=== PATIENT | male | born 1955 | race Asian ===

== ENCOUNTER 2019-02-04 09:37 | Emergency (ER) | payer MEDICARE, BC, OTHER ==
[2019-02-04 09:49] VITALS: BP 195/94
--- NOTE | 2019-02-04 10:47 | ED Physician Documentation ---
History of Present Illness - Stated complaint Stated Complaint: ANXIETY - Chief complaint Chief Complaint: MHE - History obtained from History obtained from: Patient - History of Present Illness Timing: How many weeks ago (1) - Additonal information Additional information: 63-year-old male who was eldest of his siblings has an 87-year-old mother in [place] who is in failing health. He is feeling anxiety over the fact that in his culture he is the one who supposed to take care of his parents and his mother will be staying in [place] and the situation he finds difficult. The patient has had difficulty sleeping and general issues regarding his inability to care for his aging mother. Review of Systems Constitutional: denies: Fever Eyes: denies: Decreased vision Ears: denies: Ear pain Nose: denies: Congestion Throat: denies: Sore throat Cardiac: denies: Chest pain / pressure Respiratory: denies: Dyspnea, Cough GI: reports: Constipation. denies: Abdominal Pain, Nausea, Vomiting : denies: Dysuria PD PAST MEDICAL HISTORY - Past Medical History Cardiovascular: Hypertension GI: Other Musculoskeletal: Gout - Past Surgical History Past Surgical History: Yes General: Colonoscopy, Other Ortho: Other - Present Medications Home Medications: Ambulatory Orders Medication Instructions Recorded Confirmed Carvedilol [Coreg] 40 mg PO DAILY 08/13/15 08/13/15 Colchicine 0.6 mg PO DAILY 08/13/15 08/13/15 HYDROcod/ACETAM 5/325 [[place] 5/325] 1 ea PO Q6H PRN #15 tablet 08/13/15 Indomethacin [Indocin] 25 mg PO BIDWM PRN #30 cap 08/13/15 Lisinopril 40 mg PO DAILY 08/13/15 08/13/15 Lorazepam [Ativan] 1 mg PO Q8HR #20 tablet 02/04/19 - Allergies Allergies/Adverse Reactions: Allergies Allergy/AdvReac Type Severity Reaction Status Date / Time amlodipine Allergy Edema Verified 02/04/19 09:45 venom-honey bee Allergy Anaphylaxis Verified 02/04/19 09:45 [bee venom (honey bee)] - Social History Does the pt smoke?: No Smoking Status: Never smoker - Immunizations Immunizations are current?: No Immunizations: TDAP >10years/unknown PD ED PE NORMAL - Vitals Vital signs reviewed: Yes (hyhpertensive) - General General: Alert and oriented X 3, No acute distress, Well developed/nourished - HEENT HEENT: Atraumatic, PERRL, EOMI - Respiratory Respiratory: No respiratory distress - Derm Derm: Normal color, Warm and dry, No rash - Extremities Extremities: No deformity, No edema - Neuro Neuro: Alert and oriented X 3, [place] 2-12 intact, No motor deficit, No sensory deficit, Normal speech Eye Opening: Spontaneous Motor: Obeys Commands Verbal: Oriented GCS Score: 15 - Psych Psych: Normal mood, Normal affect Results - Vitals Vitals: Vital Signs - 24 hr 02/04/19 09:40 Temperature 36 C L Heart Rate 60 Respiratory 18 Rate Blood Pressure 195/94 H O2 Saturation 98 Oxygen O2 Source Room air PD MEDICAL DECISION MAKING - ED course Complexity details: considered differential, d/w patient ED course: aobut 63-year-old male with acute situational anxiety and ruminations is not sleeping well. I discussed with him temporary use of anxiolytic and he will follow-up with his primary care doctor about counselling . Departure - Departure Disposition: 01 Home, Self Care Clinical Impression: Anxiety Condition: Stable Instructions: ED Stress React Follow-Up: Kennedy Shah MD [Physician No Access] - Prescriptions: Lorazepam [Ativan] 1 mg PO Q8HR #20 tablet
== END 2019-02-04 10:54 | disposition home or self-care (01) ==
LOC: ED 09:37
DX: F41.9 Anxiety disorder, unspecified (principal)
CPT/HCPCS: 99283

== ENCOUNTER 2020-01-30 18:58 | Emergency (ER) | payer MEDICARE, BC, OTHER ==
--- NOTE | 2020-01-30 19:52 | ED Physician Documentation ---
History of Present Illness - Stated complaint Stated Complaint: GENERAL BODY ACHES/RUN DOWN - Chief complaint Chief Complaint: General - History obtained from History obtained from: Patient - History of Present Illness Timing: Today Pain level max: 0 Pain level now: 0 - Additonal information Additional information: 64-year-old male states that he has just felt tired for the past several days. Nothing makes it better or worse. He states he took allergy medication but this did not really help. States he has a mild sore throat. Has a history of anxiety. No significant cough. No fevers. No vomiting. No diarrhea. Review of Systems Constitutional: denies: Fever, Chills Respiratory: denies: Cough, Hemoptysis, Wheezing GI: denies: Abdominal Pain, Nausea, Vomiting, Diarrhea : denies: Dysuria Musculoskeletal: denies: Neck pain, Back pain Neurologic: denies: Headache PD PAST MEDICAL HISTORY - Past Medical History Past Medical History: Yes Cardiovascular: Hypertension GI: Other Musculoskeletal: Gout - Past Surgical History Past Surgical History: Yes General: Colonoscopy, Other Ortho: Other - Present Medications Home Medications: Ambulatory Orders Medication Instructions Recorded Confirmed Carvedilol [Coreg] 40 mg PO DAILY 08/13/15 08/13/15 Colchicine 0.6 mg PO DAILY 08/13/15 08/13/15 HYDROcod/ACETAM 5/325 [[place] 5/325] 1 ea PO Q6H PRN #15 tablet 08/13/15 Indomethacin [Indocin] 25 mg PO BIDWM PRN #30 cap 08/13/15 lisinopriL [Lisinopril] 40 mg PO DAILY 08/13/15 08/13/15 Lorazepam [Ativan] 1 mg PO Q8HR #20 tablet 02/04/19 - Allergies Allergies/Adverse Reactions: Allergies Allergy/AdvReac Type Severity Reaction Status Date / Time amlodipine Allergy Edema Verified 02/04/19 09:45 venom-honey bee Allergy Anaphylaxis Verified 02/04/19 09:45 [bee venom (honey bee)] - Social History Does the pt smoke?: No Smoking Status: Never smoker Does the pt drink ETOH?: No Does the pt have substance abuse?: No - Immunizations Immunizations are current?: No Immunizations: TDAP >10years/unknown - POLST Patient has POLST: No PD ED PE NORMAL - Vitals Vital signs reviewed: Yes - General General: Alert and oriented X 3, No acute distress - HEENT HEENT: Ears normal, Moist mucous membranes, Pharynx benign - Neck Neck: Supple, no meningeal sign - Cardiac Cardiac: RRR, Strong equal pulses - Respiratory Respiratory: No respiratory distress, Clear bilaterally - Derm Derm: Warm and dry - Neuro Neuro: Alert and oriented X 3 - Psych Psych: Normal mood, Normal affect Results - Vitals Vitals: Vital Signs - 24 hr 01/30/20 01/30/20 19:06 20:17 Temperature 36.4 C L Heart Rate 65 65 Respiratory 16 14 Rate Blood Pressure 167/80 H 160/78 H O2 Saturation 96 99 Oxygen O2 Source Room air PD MEDICAL DECISION MAKING - ED course Complexity details: considered differential, d/w patient ED course: Patient is well-appearing, nontoxic. Afebrile. No hypoxia. No respiratory distress. Appears to have a viral syndrome. We will continue supportive care and have him follow-up with his doctor for further care. Patient counseled regarding signs and symptoms for which I believe and urgent re-evaluation would be necessary. Patient with good understanding of and agreement to plan and is comfortable going home at this time This document was made in part using voice recognition software. While efforts are made to proofread this document, sound alike and grammatical errors may occur. Departure - Departure Disposition: 01 Home, Self Care Clinical Impression: Viral syndrome Condition: Good Instructions: ED Viral Syndrome Follow-Up: Jeimy Martinez PA-C [Primary Care Provider] - (in 1 week if not better ) Comments: Return if you worsen. Follow-up with your doctor for further care. The coronavirus test should be back in the next 24 to 48 hours. You should stay away from others until it is resulted negative. Discharge Date/Time: 01/30/20 20:18
[2020-01-30 20:19] VITALS: BP 160/78
== END 2020-01-30 20:18 | disposition home or self-care (01) ==
LOC: ED 18:58
DX: B34.9 Viral infection, unspecified (principal); I10 Essential (primary) hypertension
CPT/HCPCS: 81599; 99283; 99284

== ENCOUNTER 2020-05-10 13:45 | Emergency (ER) | payer BC, MEDICARE, OTHER ==
[2020-05-10] MEDS ORDERED: lisinopriL 5 MG TABLET PO STA (14:19)
--- NOTE | 2020-05-10 14:23 | ED Physician Documentation ---
History of Present Illness - Stated complaint Stated Complaint: HBP/DIZZY - Chief complaint Chief Complaint: Cardiac - History obtained from History obtained from: Patient - Additonal information Additional information: 65-year-old gentleman with recalcitrant hypertension, current regimen is hydrochlorothiazide, 12.5 mg a day, Coreg, 50 mg in the morning and 25 mg at night, lisinopril, 40 mg a day although he is supposed to be taking 80 mg, and the recent start of verapamil at 40 mg a day. He noticed his blood pressure was high today. Yesterday was pretty good at 138/80. He denies chest pain or trouble breathing. He feels a little dizzy with some blurry vision. No trouble urinating. No pedal edema. Review of Systems Constitutional: denies: Fever, Chills, Myalgias, Fatigue Ears: denies: Loss of hearing, Drainage/discharge Cardiac: denies: Chest pain / pressure, Palpitations, Pedal edema, Calf pain Respiratory: denies: Dyspnea PD PAST MEDICAL HISTORY - Past Medical History Cardiovascular: Hypertension GI: Other Musculoskeletal: Gout - Past Surgical History Past Surgical History: Yes General: Colonoscopy, Other Ortho: Other - Present Medications Home Medications: Ambulatory Orders Medication Instructions Recorded Confirmed Carvedilol [Coreg] 40 mg PO DAILY 08/13/15 08/13/15 Colchicine 0.6 mg PO DAILY 08/13/15 08/13/15 HYDROcod/ACETAM 5/325 [[place] 5/325] 1 ea PO Q6H PRN #15 tablet 08/13/15 Indomethacin [Indocin] 25 mg PO BIDWM PRN #30 cap 08/13/15 lisinopriL [Lisinopril] 40 mg PO DAILY 08/13/15 08/13/15 Lorazepam [Ativan] 1 mg PO Q8HR #20 tablet 02/04/19 - Allergies Allergies/Adverse Reactions: Allergies Allergy/AdvReac Type Severity Reaction Status Date / Time amlodipine Allergy Edema Verified 05/10/20 13:56 venom-honey bee Allergy Anaphylaxis Verified 05/10/20 13:56 [bee venom (honey bee)] - Social History Does the pt smoke?: No Smoking Status: Never smoker Does the pt drink ETOH?: No Does the pt have substance abuse?: No - Immunizations Immunizations are current?: No Immunizations: TDAP >10years/unknown - POLST Patient has POLST: No PD ED PE NORMAL - Vitals Vital signs reviewed: Yes - General General: Alert and oriented X 3, No acute distress - HEENT HEENT: PERRL - Cardiac Cardiac: RRR, No murmur - Respiratory Respiratory: No respiratory distress, Clear bilaterally - Abdomen Abdomen: Non tender - Extremities Extremities: No edema, No calf tenderness / cord - Neuro Neuro: Alert and oriented X 3, Normal speech Results - Vitals Vitals: Vital Signs - 24 hr 05/10/20 13:56 Temperature 36.7 C Heart Rate 58 L Respiratory 19 Rate Blood Pressure 201/88 H O2 Saturation 100 Oxygen O2 Source Room air - Labs Labs: Laboratory Tests 05/10/20 14:29 Sodium 136 Potassium 3.4 L Chloride 99 L Carbon Dioxide 27 Anion Gap 10.0 BUN 16 Creatinine 0.7 Estimated GFR (MDRD) 112 Glucose 140 H Calcium 8.4 L Magnesium 2.5 PD MEDICAL DECISION MAKING - ED course ED course: 65-year-old gentleman with established hypertension out of control. No evidence of endorgan damage. Departure - Departure Disposition: 01 Home, Self Care Clinical Impression: Essential hypertension Condition: Good Record reviewed to determine appropriate education?: Yes Instructions: ED HTN Established Comments: Take your medications as prescribed, follow-up with your doctor in about a week for recheck. Return if worse.
[2020-05-10 14:46] LABS: CALCIUM 8.4 mg/dL (8.5-10.3); CREATININE 0.7 mg/dL (0.6-1.2); MAGNESIUM 2.5 mg/dL (1.7-2.8)
[2020-05-10 15:35] VITALS: BP 173/88
== END 2020-05-10 15:35 | disposition home or self-care (01) ==
LOC: ED 13:45
DX: I10 Essential (primary) hypertension (principal)
CPT/HCPCS: 36415; 80048; 83735; 99283; 99284; A9270

== ENCOUNTER 2020-06-08 13:01 | Emergency (ER) | payer BC, MEDICARE, OTHER ==
[2020-06-08] MEDS ORDERED: diphenhydrAMINE 25 MG CAPSULE PO STA (13:13)
[2020-06-08] MEDS ORDERED: predniSONE 20 MG TABLET PO STA (13:13)
--- NOTE | 2020-06-08 14:03 | ED Physician Documentation ---
History of Present Illness - Stated complaint Stated Complaint: BEE STING/ALLERGIC REACTION - Chief complaint Chief Complaint: Allergic Rx - History obtained from History obtained from: Patient - History of Present Illness Timing: Today Pain level max: 0 Pain level now: 0 - Additonal information Additional information: 65-year-old male presents to the emergency department stating that he was stung by a bee on the left side of the neck approximately 30 to 40 minutes prior to arrival. Has had allergic reactions in the past. He does not have any difficulty speaking, swallowing or breathing at this time. Has not taken anything. Nothing makes it better or worse. Review of Systems Ten Systems: 10 systems reviewed and negative Constitutional: denies: Fever, Chills Nose: denies: Rhinorrhea / runny nose, Congestion Cardiac: denies: Chest pain / pressure, Palpitations Respiratory: denies: Dyspnea, Cough GI: denies: Nausea, Vomiting, Diarrhea Skin: denies: Rash Musculoskeletal: denies: Neck pain, Back pain Neurologic: denies: Headache PD PAST MEDICAL HISTORY - Past Medical History Cardiovascular: Hypertension Respiratory: None Neuro: None Endocrine/Autoimmune: None GI: Other : None HEENT: None Psych: None Musculoskeletal: Gout Derm: None - Past Surgical History Past Surgical History: Yes General: Colonoscopy, Other Ortho: Other - Present Medications Home Medications: Ambulatory Orders Medication Instructions Recorded Confirmed Carvedilol [Coreg] 40 mg PO DAILY 08/13/15 08/13/15 Colchicine 0.6 mg PO DAILY 08/13/15 08/13/15 HYDROcod/ACETAM 5/325 [[place] 5/325] 1 ea PO Q6H PRN #15 tablet 08/13/15 Indomethacin [Indocin] 25 mg PO BIDWM PRN #30 cap 08/13/15 lisinopriL [Lisinopril] 40 mg PO DAILY 08/13/15 08/13/15 Lorazepam [Ativan] 1 mg PO Q8HR #20 tablet 02/04/19 EPINEPHrine [Epinephrine] 0.3 mg IJ ONCE PRN #1 auto.injct 06/08/20 predniSONE [Prednisone] 40 mg PO DAILY #10 tablet 06/08/20 - Allergies Allergies/Adverse Reactions: Allergies Allergy/AdvReac Type Severity Reaction Status Date / Time amlodipine Allergy Edema Verified 06/08/20 13:09 venom-honey bee Allergy Anaphylaxis Verified 06/08/20 13:09 [bee venom (honey bee)] - Social History Does the pt smoke?: No Smoking Status: Never smoker Does the pt drink ETOH?: No Does the pt have substance abuse?: No - Immunizations Immunizations are current?: No Immunizations: TDAP >10years/unknown - POLST Patient has POLST: No PD ED PE NORMAL - Vitals Vital signs reviewed: Yes - General General: Alert and oriented X 3, No acute distress, Well developed/nourished - HEENT HEENT: PERRL, Moist mucous membranes, Pharynx benign, Other (No oropharyngeal erythema, swelling. No stridor. Normal phonation.) - Neck Neck: Supple, no meningeal sign - Cardiac Cardiac: RRR, Strong equal pulses - Respiratory Respiratory: No respiratory distress, Clear bilaterally - Abdomen Abdomen: Soft, Non tender, Non distended - Derm Derm: Warm and dry, No rash - Extremities Extremities: No edema - Neuro Neuro: Alert and oriented X 3 - Psych Psych: Normal mood, Normal affect Results - Vitals Vitals: Vital Signs - 24 hr 06/08/20 06/08/20 06/08/20 13:09 13:12 14:16 Temperature 36.8 C 36.8 C Heart Rate 70 72 75 Respiratory 16 20 16 Rate Blood Pressure 168/90 H 155/85 H 148/68 H O2 Saturation 95 96 98 Oxygen O2 Source Room air PD MEDICAL DECISION MAKING - ED course Complexity details: considered differential, d/w patient ED course: Patient with a bee sting today. Given Benadryl and prednisone. No indications for epi. Monitored for approximately 1 hour after medication with no changes in his symptoms. Feels better. Will prescribe an epinephrine pen for home and have him follow-up with his doctor for further care. Patient counseled regarding signs and symptoms for which I believe and urgent re-evaluation would be necessary. Patient with good understanding of and agreement to plan and is comfortable going home at this time This document was made in part using voice recognition software. While efforts are made to proofread this document, sound alike and grammatical errors may occur. Departure - Departure Disposition: 01 Home, Self Care Clinical Impression: Bee sting Qualifiers: Encounter type: initial encounter Injury intent: assault Qualified Code(s): T63 .443A - Toxic effect of venom of bees, assault, initial encounter Condition: Good Instructions: ED Bite Insect Follow-Up: Ramila Pizarro PA [Primary Care Provider] - As Needed Prescriptions: EPINEPHrine [Epinephrine] 0.3 mg IJ ONCE PRN #1 auto.injct PRN Reason: Anaphylaxis predniSONE [Prednisone] 40 mg PO DAILY #10 tablet Comments: Return if you worsen. Stay on the steroids for the next several days. If you need to use the epinephrine pen for difficulty breathing, you need to be reevaluated right away. Discharge Date/Time: 06/08/20 14:17
[2020-06-08 14:17] VITALS: BP 148/68
== END 2020-06-08 14:17 | disposition home or self-care (01) ==
LOC: ED 13:01
DX: T63.441A Toxic effect of venom of bees, accidental (unintentional), initial encounter (principal); Y93.53 Activity, golf; Y92.39 Other specified sports and athletic area as the place of occurrence of the external cause; Z91.030 Bee allergy status; I10 Essential (primary) hypertension
CPT/HCPCS: 99282; 99284; A9270; J7512

== ENCOUNTER 2020-09-30 08:00 | Outpatient (CLI) | payer MEDICARE, OTHER ==
[2020-09-30 18:51] LABS: BASOPHILS # (AUTO) 0.1 10^3/uL (0.0-0.1); BASOPHILS % (AUTO) 0.8 %; EOSINOPHILS # (AUTO) 0.2 10^3/uL (0.0-0.7); EOSINOPHILS % (AUTO) 3.2 %; LYMPHOCYTES # (AUTO) 1.7 10^3/uL (1.5-3.5); LYMPHOCYTES % (AUTO) 28.2 %; MEAN CORPUSCULAR HEMOGLOBIN 28.8 pg (27.0-31.0); MEAN CORPUSCULAR HGB CONC 32.9 g/dL (32.0-36.0); MEAN CORPUSCULAR VOLUME 87.7 fL (80.0-94.0); MEAN PLATELET VOLUME 10.5 fL (7.4-11.4); MONOCYTES # (AUTO) 0.4 10^3/uL (0.0-1.0); NEUTROPHILS # (AUTO) 3.7 10^3/uL (1.5-6.6); NEUTROPHILS % (AUTO) 60.3 %; PLT - PLATELET COUNT 248 10^3/uL (130-450); RED CELL DISTRIBUTION WIDTH 12.5 % (12.0-15.0); WHITE BLOOD COUNT 6.2 x10^3/uL (4.8-10.8)
[2020-09-30 19:07] LABS: CRP - C-REACTIVE PROTEIN 1.1 mg/dL (0-1.0); URIC ACID 6.9 mg/dL (2.6-7.2)
[2020-09-30 20:09] LABS: RHEUMATOID FACTOR NEGATIVE (Negative)
[2020-10-02 14:07] LABS: DNA (DS) ANTIBODY <1 IU/mL
[2020-10-02 20:17] LABS: CYCLIC CITRULL PEPTIDE CCP IGG <16 UNITS
== END 2020-09-30 08:01 | disposition home or self-care (01) ==
LOC: LAB.N 08:00
PROVIDERS: ATTEND Family Medicine
DX: M19.90 Unspecified osteoarthritis, unspecified site (principal); I10 Essential (primary) hypertension
CPT/HCPCS: 36415; 84550; 85025; 85651; 86038; 86140; 86200; 86225; 86430

== ENCOUNTER 2020-10-14 02:06 | Outpatient (CLI) | payer MEDICARE, OTHER | END 2020-10-14 02:07 | disposition EMS.NT | LOC: EMS 02:06 | PROVIDERS: ATTEND Surgery | DX: M79.672 Pain in left foot (principal); M79.671 Pain in right foot ==

== ENCOUNTER 2020-11-24 15:30 | Emergency (ER) | payer MEDICARE, OTHER ==
[2020-11-24] MEDS ORDERED: SODIUM CHLORIDE 0.9% 1,000 ML IV STA (15:45)
--- NOTE | 2020-11-24 16:17 | ED Physician Documentation ---
PD HPI MALE - Stated complaint Stated Complaint: MALE - Chief complaint Chief Complaint: Abd Pain - History obtained from History obtained from: Patient - Additional information Additional information: Patient comes emergency department chief complaint of a strong, pressure-like discomfort in his genital and rectal area. Patient states that a few weeks ago, he was diagnosed with prostate cancer which he states is unilateral and localized. He has seen uro-oncology, who has recommended either surgical intervention or radiation. He states there is no role for chemotherapy at this time. He did have a punch biopsy performed and states that symptoms did not start until about a week later. He states he just gets an intense pressure in the base of his penis extending through the entire penis and somewhat into his scrotum. He denies any testicular swelling. He states that he will have a strong urge to urinate and that after he does, he still has a strong urge to urinate. Patient states that he when he defecates, he also has a persistent feeling of needing to defecate, even though he feels as though he has evacuated completely. He denies any blood or discharge per his urethral meatus. No lesions. He states that his doctor told him that his cancer was nonpalpable, and that he is also on Flomax and does not think that he is retaining urine but is not sure. Patient denies fever and chills. No abdominal pain. No nausea or vomiting. He is not sure exactly when his next urology appointment is, but he has seen radiation oncologist to prepare for radiation. No other complaints at this time. The patient seen and states that just before this, he was seen at the walk-in clinic by Dr. Wise, who checked a urinalysis and told the patient that the urinalysis was negative. Review of Systems Ten Systems: 10 systems reviewed and negative Constitutional: reports: Reviewed and negative. denies: Fever, Chills Eyes: reports: Reviewed and negative Ears: reports: Reviewed and negative Nose: reports: Reviewed and negative Throat: reports: Reviewed and negative Cardiac: reports: Reviewed and negative Respiratory: reports: Reviewed and negative GI: reports: Reviewed and negative : reports: Other (Urgency, Pelvic pressure.). denies: Dysuria, Frequency, Hesitancy Skin: reports: Reviewed and negative Musculoskeletal: reports: Reviewed and negative Neurologic: reports: Reviewed and negative Psychiatric: reports: Reviewed and negative Endocrine: reports: Reviewed and negative Immunocompromised: reports: Reviewed and negative PD PAST MEDICAL HISTORY - Past Medical History Past Medical History: Yes Cardiovascular: Hypertension Respiratory: None Neuro: None Endocrine/Autoimmune: None GI: Other : Other HEENT: None Psych: None Musculoskeletal: Gout Derm: None Other Past Medical History: Prostate cancer Dx 10/2020 - Past Surgical History Past Surgical History: Yes General: Cholecystectomy, Colonoscopy, Other Ortho: Other - Present Medications Home Medications: Ambulatory Orders Medication Instructions Recorded Confirmed Carvedilol [Coreg] 40 mg PO DAILY 08/13/15 08/13/15 Colchicine 0.6 mg PO DAILY 08/13/15 11/24/20 HYDROcod/ACETAM 5/325 [[place] 5/325] 1 ea PO Q6H PRN #15 tablet 08/13/15 Indomethacin [Indocin] 25 mg PO BIDWM PRN #30 cap 08/13/15 Lorazepam [Ativan] 1 mg PO Q8HR #20 tablet 02/04/19 EPINEPHrine [Epinephrine] 0.3 mg IJ ONCE PRN #1 auto.injct 06/08/20 predniSONE [Prednisone] 40 mg PO DAILY #10 tablet 06/08/20 Atenolol [Tenormin] 50 mg PO BID 11/24/20 11/24/20 Losartan [Cozaar] 50 mg PO DAILY 11/24/20 11/24/20 Tamsulosin HCl [Flomax] 0.4 mg PO BID 11/24/20 11/24/20 amLODIPine [Norvasc] 5 mg PO DAILY 11/24/20 11/24/20 - Allergies Allergies/Adverse Reactions: Allergies Allergy/AdvReac Type Severity Reaction Status Date / Time venom-honey bee Allergy Anaphylaxis Verified 11/24/20 15:38 [bee venom (honey bee)] amlodipine AdvReac Edema Verified 11/24/20 15:38 - Social History Does the pt smoke?: No Smoking Status: Never smoker Does the pt drink ETOH?: No Does the pt have substance abuse?: No - Immunizations Immunizations are current?: Yes Immunizations: TDAP >10years/unknown - POLST Patient has POLST: No PD ED PE NORMAL - Vitals Vital signs reviewed: Yes - General General: Alert and oriented X 3, No acute distress, Well developed/nourished - HEENT HEENT: Atraumatic, PERRL, EOMI, Moist mucous membranes - Neck Neck: Supple, no meningeal sign - Cardiac Cardiac: RRR, No murmur, Strong equal pulses - Respiratory Respiratory: No respiratory distress, Clear bilaterally - Abdomen Abdomen: Soft, Non tender, Non distended - Male Male : Other (Normal male genitalia. Patient is circumcised. No lesions. No testicular swelling or tenderness. No scrotal abnormalities. Penile shaft is nontender. No discharge noted. No mass palpable. No hernia.) - Derm Derm: Normal color, Warm and dry, No rash - Extremities Extremities: No deformity, No edema - Neuro Neuro: Alert and oriented X 3, director music 2-12 intact, Normal speech, Other (Grossly normal) - Psych Psych: Normal mood, Normal affect Results - Vitals Vitals: Vital Signs - 24 hr 11/24/20 15:38 Temperature 36.7 C Heart Rate 68 Respiratory 18 Rate Blood Pressure 173/86 H O2 Saturation 99 Oxygen O2 Source Room air PD MEDICAL DECISION MAKING - ED course Complexity details: reviewed results, re-evaluated patient, considered differential, d/w patient ED course: Patient was worked up initially with labs and urinalysis, as well as bladder scan, which showed a residual 44 cc after patient urinated. At this point in time, labs and urinalysis are pending, as is CT scan of the abdomen and pelvis. Patient was signed out to Dr. Moseley pending these and final disposition.
[2020-11-24 16:54] LABS: BASOPHILS % (AUTO) 0.4 %; EOSINOPHILS # (AUTO) 0.1 10^3/uL (0.0-0.7); EOSINOPHILS % (AUTO) 0.9 %; HCT - HEMATOCRIT 45.5 % (42.0-52.0); HGB - HEMOGLOBIN 15.5 g/dL (14.0-18.0); LYMPHOCYTES # (AUTO) 1.9 10^3/uL (1.5-3.5); LYMPHOCYTES % (AUTO) 24.9 %; MEAN CORPUSCULAR HGB CONC 34.1 g/dL (32.0-36.0); MEAN CORPUSCULAR VOLUME 85.2 fL (80.0-94.0); MEAN PLATELET VOLUME 9.4 fL (7.4-11.4); MONOCYTES # (AUTO) 0.4 10^3/uL (0.0-1.0); MONOCYTES % (AUTO) 4.8 %; NEUTROPHILS # (AUTO) 5.3 10^3/uL (1.5-6.6); NEUTROPHILS % (AUTO) 68.6 %; PLT - PLATELET COUNT 203 10^3/uL (130-450); RED BLOOD COUNT 5.34 10^6/uL (4.70-6.10); RED CELL DISTRIBUTION WIDTH 13.6 % (12.0-15.0); WHITE BLOOD COUNT 7.8 x10^3/uL (4.8-10.8)
[2020-11-24 17:08] LABS: BILIRUBIN,URINE NEGATIVE (NEGATIVE); GLUCOSE, URINE (UA) NEGATIVE (NEGATIVE); KETONES,URINE (UA) NEGATIVE (NEGATIVE); LEUKOCYTE ESTERASE, URINE NEGATIVE (NEGATIVE); NITRITE,URINE NEGATIVE (NEGATIVE); OCCULT BLOOD,URINE NEGATIVE (NEGATIVE); PH,URINE 6.5 PH (5.0-7.5); PROTEIN,URINE NEGATIVE (NEGATIVE); UROBILINOGEN,URINE 0.2 (NORMAL) E.U./dL (NORMAL)
[2020-11-24 17:09] LABS: ALBUMIN 4.4 g/dL (3.2-5.5); ALBUMIN/GLOBULIN RATIO 1.4 (1.0-2.2); BILIRUBIN,TOTAL 1.1 mg/dL (0.2-1.0); CALCIUM 9.1 mg/dL (8.5-10.3); CREATININE 0.8 mg/dL (0.6-1.2); POTASSIUM 3.2 mmol/L (3.5-5.0); TOTAL PROTEIN 7.6 g/dL (6.7-8.2)
[2020-11-24 17:10] LABS: CLARITY,URINE CLEAR (CLEAR)
[2020-11-24] MEDS ORDERED: IBUPROFEN 800 MG TABLET PO STA (18:11)
[2020-11-24] MEDS ORDERED: IOVERSOL 320 100 ML VIAL IVP ONE ×2 (18:30→18:42)
--- NOTE | 2020-11-24 18:51 | CT Report ---
PROCEDURE: Abdomen/Pelvis W INDICATIONS: low abdominal/rectal discomfort, prostate cancer CONTRAST: IV CONTRAST: Optiray 320 ml: 100 PO CONTRAST: *NO PO CONTRAST TECHNIQUE: After the administration of IV contrast, 5 mm thick sections acquired from the diaphragms to the symp hysis. 5 mm thick coronal and sagittal reformats were acquired. For radiation dose reduction, the f ollowing was used: automated exposure control, adjustment of mA and/or kV according to patient size. COMPARISON: None. FINDINGS: Image quality: Excellent. ABDOMEN: Lung bases: Lung bases are clear. Heart size is normal. Solid organs: Liver and spleen are normal in size. 1.1 cm well-circumscribed hypodensity is seen inv olving inferior right hepatic lobe and may represent a hepatic cyst. 8 mm oval hypodensity is also se en in posterior lateral periphery of right hepatic lobe. Gallbladder is surgically absent. Biliary s ystem is non dilated. Pancreas enhances normally. No adrenal nodules. Kidneys demonstrate normal s ize and enhancement, without hydronephrosis. Peritoneum and bowel: Bowel loops demonstrate normal wall thickness and caliber. No free fluid or a ir. Appendix is visualized and is within normal limits. Mild colonic diverticulosis is seen, no CT e vidence of acute diverticulitis. A surgical clip is seen in lower sigmoid colon/rectum right posterio r lateral wall suggest clinical correlation. Nodes and vessels: No retroperitoneal or mesenteric adenopathy by size criteria. Aorta and inferior vena cava are normal in size. Miscellaneous: No ventral hernias. PELVIS: Genitourinary: Bladder wall thickness is normal. Enlarged prostate gland with mass effect on floor of urinary bladder is seen. Miscellaneous: No inguinal hernias or adenopathy. Bones: No suspicious bony lesions. No vertebral body compression fractures. Degenerative disc dise ase throughout lower thoracic and lumbar spine is seen. Osteoarthritic changes are noted in bony pelv is. IMPRESSION: 1. Normal appendix. Mild colonic diverticulosis without evidence of acute diverticulitis. No bowel ob struction. No free fluid or free air. 2. Well-circumscribed hypodensities seen in right hepatic lobe as described above likely represent he patic cysts. 3. Enlarged prostate gland with mild mass effect on floor of urinary bladder. No gross bladder wall a bnormality. 4. No gross suspicious bony lesion is noted. Reviewed by: Dinesh Shankar MD on 11/24/2020 6:50 PM PST Approved by: Dinesh Shankar MD on 11/24/2020 6:50 PM PST Station ID: [id number]
[2020-11-24] MEDS ORDERED: LORazepam 1 MG TABLET PO STA (19:06)
--- NOTE | 2020-11-24 19:07 | ED Physician Documentation ---
ED Addendum - Addendum Addendum: 11/24/20 19:07 Patient signed out from Dr. Platt at shift change. Briefly this is a 65-year-old gentleman with new diagnosis of prostate cancer with pelvic and penile pain, normal exam there per Dr. Platt. We were awaiting labs and CT imaging. His labs are unremarkable with a normal white counts normal urine. CT imaging demonstrates chronic hepatic cysts and a large prostate gland with mass- effect on the floor of the bladder. I believe that is what is causing his pain. This was discussed with him at length. He has follow-up planned with [facility], and he was given a CD with a copy of the images to aid in follow-up. His questions were answered. He is having a lot of anxiety and requested a prescription for that so he was given a prescription for Ativan, 1 mg p.o. 3 times daily as needed anxiety #15. He was counseled not to drink or drive with that. 11/24/20 19:07 Disposition: Discharged home Condition: Stable Diagnosis 1. Pelvic pain 2. Prostate cancer 3. Anxiety 11/24/20 19:48
[2020-11-24 19:16] VITALS: BP 163/87
== END 2020-11-24 19:46 | disposition home or self-care (01) ==
LOC: ED 15:30
DX: C61 Malignant neoplasm of prostate (principal); K76.89 Other specified diseases of liver; F41.9 Anxiety disorder, unspecified; I10 Essential (primary) hypertension
CPT/HCPCS: 36415; 51798; 74177; 80053; 81003; 83690; 85025; 96360; 96361; 99284; A9270; J8499; Q9967; 81001; 87086

== ENCOUNTER 2023-11-01 08:35 | Outpatient (CLI) | payer MEDICARE, OTHER ==
[2023-11-01 08:47] LABS: BASOPHILS % (AUTO) 0.7 %; EOSINOPHILS # (AUTO) 0.1 10^3/uL (0.0-0.7); EOSINOPHILS % (AUTO) 2.4 %; HCT - HEMATOCRIT 40.5 % (42.0-52.0); HGB - HEMOGLOBIN 13.6 g/dL (14.0-18.0); LYMPHOCYTES # (AUTO) 1.2 10^3/uL (1.5-3.5); LYMPHOCYTES % (AUTO) 22.8 %; MEAN CORPUSCULAR HEMOGLOBIN 28.7 pg (27.0-31.0); MEAN CORPUSCULAR HGB CONC 33.6 g/dL (32.0-36.0); MEAN CORPUSCULAR VOLUME 85.4 fL (80.0-94.0); MEAN PLATELET VOLUME 9.1 fL (7.4-11.4); MONOCYTES # (AUTO) 0.4 10^3/uL (0.0-1.0); MONOCYTES % (AUTO) 6.8 %; NEUTROPHILS # (AUTO) 3.6 10^3/uL (1.5-6.6); NEUTROPHILS % (AUTO) 66.9 %; PLT - PLATELET COUNT 207 10^3/uL (130-450); RED BLOOD COUNT 4.74 10^6/uL (4.70-6.10); RED CELL DISTRIBUTION WIDTH 13.3 % (12.0-15.0); WHITE BLOOD COUNT 5.4 x10^3/uL (4.8-10.8)
[2023-11-01 09:05] LABS: ALBUMIN 4.4 g/dL (3.2-5.5); ALBUMIN/GLOBULIN RATIO 1.4 (1.0-2.2); BILIRUBIN,TOTAL 0.6 mg/dL (0.2-1.0); CALCIUM 9.4 mg/dL (8.5-10.3); POTASSIUM 3.3 mmol/L (3.5-4.5); TOTAL PROTEIN 7.5 g/dL (6.4-8.9)
[2023-11-01 10:55] LABS: ESTIMATED AVERAGE GLUCOSE 140 mg/dL (70-100); HEMOGLOBIN A1c% 6.5 % (4.27-6.07)
== END 2023-11-01 08:36 | disposition home or self-care (01) ==
LOC: LAB 08:35
PROVIDERS: ATTEND Family Medicine
DX: I10 Essential (primary) hypertension (principal); R73.9 Hyperglycemia, unspecified
CPT/HCPCS: 36415; 80053; 83036; 85025

== ENCOUNTER 2024-06-12 12:58 | Outpatient (CLI) | payer MEDICARE, OTHER ==
[2024-06-12 14:43] LABS: CALCIUM 9.8 mg/dL (8.5-10.3); CREATININE 1.1 mg/dL (0.6-1.3); POTASSIUM 3.5 mmol/L (3.5-4.5)
== END 2024-06-12 12:59 | disposition home or self-care (01) ==
LOC: LAB.N 12:58 → LAB 12:59
PROVIDERS: ATTEND Family Medicine
DX: R06.02 Shortness of breath (principal)
CPT/HCPCS: 36415; 80048